=== PATIENT | female | born 1965 | race Caucasian/White ===

== ENCOUNTER 2018-03-12 05:33 | Inpatient (IN) | payer BC, OTHER ==
[2018-03-07 09:39] LABS: URINE BILIRUBIN NEGATIVE (Negative); URINE BLOOD 1+ (Negative); URINE CLARITY CLEAR; URINE COLOR YELLOW; URINE GLUCOSE-RANDOM* NEGATIVE (Negative); URINE KETONES NEGATIVE (Negative); URINE LEUKOCYTES NEGATIVE (Negative); URINE NITRITE NEGATIVE (Negative); URINE PROTEIN (DIPSTICK) NEGATIVE (Negative); URINE UROBILINOGEN 0.2 E.U./dl (0.2-1.0)
[2018-03-07 10:03] LABS: CASTS None Seen /LPF (None Seen); CRYSTALS None Seen /LPF (None Seen); SQUAMOUS >10 Many /LPF (0-3); URINE RBC 3-10 Few /HPF (0-2); URINE WBC 0-5 Rare /HPF (0-5)
[2018-03-07 10:04] LABS: BACTERIA 1-9 Few /HPF (None Seen)
[~2018-03-12] VITALS: Ht 162.6 cm; Wt 97.1 kg
[2018-03-12] VITALS (8 sets, daily range): BP systolic 121–146; BP diastolic 73–95
--- NOTE | ~2018-03-12 | D ---
[facility] [place] [address] DISCHARGE SUMMARY Name: HANNAH NAIR Room #: 463-P [facility] IN M.R.#: [id number] Admission: 03/12/18 Attend Phys: Abhijeet Johnson MD Discharge: 03/14/18 Date of : 67 Report #: [id number] THIS REPORT FOR: //name// CC: Abhijeet Titus DATE OF SERVICE: 03/14/2018 FINAL DIAGNOSIS: End-stage degenerative osteoarthritis, right knee. OPERATIONS AND PROCEDURES: Right total knee arthroplasty. HISTORY OF PRESENT ILLNESS: This active, fit 52-year-old female has progressive bilateral knee pain, worse on the right than the left. She has failed to see progress with conservative measures including medications, injections and arthroscopic debridement. She has elected to go ahead with total knee arthroplasty. HOSPITAL COURSE: The patient was admitted and taken to the operating room on 03/12/2018. She underwent right total knee arthroplasty, which she tolerated quite nicely. Postoperatively, she had moderate discomfort, which was managed by IV analgesics and then oral analgesics. She was able to resume a regular diet. She resumed her routine medications. She was started on Xarelto for anticoagulation. She was started on oral Percocet and advanced to hydrocodone. She participated with physical therapy and appears to be independent and functioning nicely and is anxious for hospital discharge today on 03/14/2018. The dressing is dry and there is no redness or warmth and no sign of any wound problems. DISCHARGE MEDICATIONS: Include Xarelto 10 mg daily, hydrocodone 10 mg q.4-6 hours p.r.n. for pain, Synthroid 150 mcg daily, Prilosec 20 mg daily. DISCHARGE INSTRUCTIONS: She will continue with independent exercise at home over the coming few days and will start outpatient physical therapy next week. FOLLOWUP: We will plan to see her back in the office in 1-2 weeks for followup and wound inspection. <ELECTRONICALLY SIGNED> By: Abhijeet Johnson MD 03/16/18 1347 1303 [id number] Abhijeet Johnson MD /nt
--- NOTE | ~2018-03-12 | EKG ---
[address] [address] ELECTROCARDIOGRAM REPORT Name: HANNAH NAIR Room #: [facility] IN [facility]#: [id number] Admission: Attend Phys: Abhijeet Johnson MD Discharge: Date of : 67 Report #: [id number] THIS REPORT FOR: //name// [facility] Test Date: 2018-03-07 Test Time: 09:01:00 Pat Name: HANNAH NAIR Department: Room: Gender: F Senior Database Programmer: Katarzyna PAPPAS : 1965 Requested By: Abhijeet Johnson Order Number: [id number] MD: Tavon Hill Measurements Intervals [place] Rate: 75 P: 50 VA: 142 QRS: 28 QRSD: 83 T: 53 QT: 394 QTc: 441 Interpretive Statements Sinus rhythm Normal tracing No previous ECG available for comparison Electronically Signed On 03-07-2018 9:22:13 CDT by Tavon Hill [email or web address] <ELECTRONICALLY SIGNED> By: Tavon Hill MD, [facility] 03/07/18 0922 0901 0901 Tavon Hill MD, FACC /EPI
--- NOTE | ~2018-03-12 | O ---
[facility] [place] [address] OPERATIVE REPORT Name: HANNAH NAIR Room #: 463-P [facility] IN M.R.#: [id number] Admission: 03/12/18 Attend Phys: Abhijeet Johnson MD Discharge: Date of : 67 Report #: [id number] THIS REPORT FOR: //name// CC: Abhijeet Johnson Rolf Titus DATE OF SERVICE: 03/12/2018 PREOPERATIVE DIAGNOSIS: Degenerative osteoarthritis, right knee. POSTOPERATIVE DIAGNOSIS: Degenerative osteoarthritis, right knee. PROCEDURE: Right total knee arthroplasty. SURGEON: Abhijeet Johnson MD. INDICATIONS: This 52-year-old female who has had chronic progressive bilateral knee pain. She has mild chronic deformity of both knees with moderate internal tibial torsion, which caused a slightly awkward gait pattern. She has developed significant progressive right knee pain, which has been unresponsive to previous measures including arthroscopic debridement, injections and anti-inflammatories. Now, x-rays reveal only moderate joint space narrowing, but her clinical exam is significant, and her subjective complaints are severe. Given this, she has elected to go ahead with right total knee arthroplasty. DESCRIPTION OF PROCEDURE: The patient was taken to the operating room where she was placed under general anesthesia. Prophylactic intravenous antibiotics were administered. The right knee and leg were meticulously prepped and draped. A thigh tourniquet was applied and inflated to 300 mmHg. The preoperative knee exam revealed full extension and satisfactory flexion to about 140 degrees, but a significant internal tibial torsion of about 20 degrees. An anterior longitudinal skin incision was made. This was carried through the medial retinaculum. The patella was reflected laterally, rather significant degenerative change, the medial compartment and moderate degenerative change of the patella and lateral compartment was identified. The Howard and NephCubie knee system was utilized. Intramedullary guides were used on both the femur and the tibia. The femur was cut in 5 degrees of valgus and a size 4 femoral component fit nicely. The tibia was cut perpendicular to long axis of the bone with a 3-degree posterior slope. The cutting guide was aligned with her normal tibial position, which reproduced about 15-20 degrees of internal tibial torsion. A size 3 tibial component seemed to fit nicely. The patellar surface was resected, and a 35 mm patellar button fit nicely, and appropriate anchor holes were created. A trial reduction was performed and the knee seemed best suited for a size 10 mm polyethylene insert. With the trial components in place, the knee demonstrated full knee extension and flexion to 140 degrees with good stability on varus and valgus stress. The patella tracks nicely. [address] [address] OPERATIVE REPORT Name: HANNAH NAIR Room #: 463-P [facility] IN M.R.#: [id number] Admission: 03/12/18 Attend Phys: Abhijeet Johnson MD Discharge: Date of : 67 Report #: [id number] The trial components were removed. The surfaces were thoroughly irrigated and dried. A bone block was placed in the intramedullary canal in both the femoral and tibial sides. Methyl methacrylate cement was mixed and injected into the porous surface of the proximal tibia. The Shital II right tibial base plate was then applied using the size 3 baseplate. This was impacted into position and seated nicely and appeared to be secure. Excess cement was removed around its margin. A Legion cruciate retaining high flexion polyethylene insert was then applied using a 10 mm thickness. This was snapped into position and seated nicely and appeared to be secure. A right lesion porous cruciate retaining femoral component was impacted on the distal femur. It seated nicely and appeared to be secure. A Shital II 35 mm patellar button was cemented into place using appropriate anchor holes and cement. It was secured with a patellar clamp until the cement had fully hardened and all excess cement was removed around its margin. Once the cement was firm, alignment, range of motion and stability were once again assessed and felt to be satisfactory. The knee demonstrated full knee extension and flexion to 140 degrees with good alignment and satisfactory stability. The patella tracked nicely. A single Hemovac was left in the wound exiting through a separate stab incision. The fascia was closed with multiple #1 Vicryl sutures. Subcutaneous tissues were closed with 0 Monocryl. The skin was closed with skin horacio. The tourniquet was deflated after a total tourniquet time of 48 minutes. A sterile dressing was applied. The patient was awakened and returned to recovery room in good condition. <ELECTRONICALLY SIGNED> By: Abhijeet Johnson MD 03/13/18 0739 0926 1008 Abhijeet Johnson MD /nt
[~2018-03-12 05:33] MED LIST: LISINOPRIL20 MG PO; PRILOSEC 20 MG20 MG PO; SYNTHROID150 MCG PO
[2018-03-13 02:25] VITALS: BP 96/54
[2018-03-13 06:06] LABS: HEMATOCRIT 34.8 % (37.0-47.0); HEMOGLOBIN 11.5 gm/dL (12.0-15.0); MCH 29.2 pg (26.0-34.0); MCHC 33.2 g/dL (28.0-37.0); MCV 87.9 fL (80.0-100.0); RBC 3.96 mil/uL (4.20-5.00); RDW 13.4 % (10.5-14.5)
[2018-03-13 08:07] VITALS: BP 106/63
[2018-03-13 19:22] VITALS: BP 117/62
[2018-03-14 04:39] VITALS: BP 135/67
[2018-03-14 05:21] LABS: HEMATOCRIT 27.8 % (37.0-47.0); HEMOGLOBIN 9.2 gm/dL (12.0-15.0); MCH 29.2 pg (26.0-34.0); MCV 88.7 fL (80.0-100.0); RBC 3.14 mil/uL (4.20-5.00); RDW 13.6 % (10.5-14.5); WBC 13.6 thou/uL (4.0-11.0)
[2018-03-14 07:10] VITALS: BP 117/65
[2018-03-14 13:06] VITALS: BP 117/65
== END 2018-03-14 14:18 | disposition home or self-care (01) | DRG 470 ==
LOC: TBA 05:33 → PRE 05:33 → 4W 12:00 → PRE 12:57 → ENTRNSPT 03-14 13:54 → EDTRNSPTSTS 03-14 13:57 → 4W 03-14 14:18
PROVIDERS: Orthopaedic Surgery
PROC: 0SRC0J9 Replacement of Right Knee Joint with Synthetic Substitute, Cemented, Open Approach (ICD-10-PCS; principal; 2018-03-12)
DX: M17.11 Unilateral primary osteoarthritis, right knee (principal); K21.9 Gastro-esophageal reflux disease without esophagitis; I10 Essential (primary) hypertension; E03.9 Hypothyroidism, unspecified; E66.9 Obesity, unspecified; Z98.891 History of uterine scar from previous surgery; Z87.442 Personal history of urinary calculi; Z79.01 Long term (current) use of anticoagulants; Z79.899 Other long term (current) drug therapy; Z28.21 Immunization not carried out because of patient refusal
CPT/HCPCS: 10047; 50010; 50101; 50415; 50954; 51130; 51225; 51412; 51771; 53364; 56525; 57103; 57104; 57180; 62110; 62900; 70005

== ENCOUNTER → 2019-06-18 | Outpatient (CLI) | payer OTHER | LOC: CAT 08:20 | DX: Z13.6 Encounter for screening for cardiovascular disorders (principal); I25.10 Atherosclerotic heart disease of native coronary artery without angina pectoris; E78.00 Pure hypercholesterolemia, unspecified ==